=== PATIENT | female | born 1975 | race Caucasian/White ===

== ENCOUNTER → 2016-12-03 | Outpatient (CLI) | payer BC ==
[~2016-12-03] MED LIST: ADIPEX-P37.5 MG; CALCIUM CARB W/1 TA1 PO; FLINTSTONES W/I1 CTB PO; LEVORA-28 30 MC1 TA1 PO; MOTRIN 800800 MG/TAB PO; MULTIPLE VITAMI1 TA7 PO; PRISTIQ 50 MG T50 MG PO; RITE AID BIO2500 MCG PO; ULTRAM 50MG TAB50 MG PO; VITAMIN B12100 MC1 MM; WELLBUTRIN 75MG75 MG PO; ZYRTEC 10MG10 MG PO; [UNRECOGNIZED DRUG - OTHER] PO
== END ==
LOC: BHSO 09:52
DX: F41.1 Generalized anxiety disorder (principal)
CPT/HCPCS: 90791-AI

== ENCOUNTER → 2017-01-25 | Outpatient (CLI) | payer BC | LOC: BHSO 11:38 | DX: F41.1 Generalized anxiety disorder (principal) ==

== ENCOUNTER → 2017-03-01 | Outpatient (CLI) | payer BC | LOC: BHSO 08:58 | DX: F41.1 Generalized anxiety disorder (principal) | CPT/HCPCS: G0463 ==

== ENCOUNTER → 2017-04-19 | Outpatient (CLI) | payer BC | LOC: BHSO 11:15 | DX: F33.41 Major depressive disorder, recurrent, in partial remission (principal) | CPT/HCPCS: G0463 ==

== ENCOUNTER → 2017-06-14 | Outpatient (CLI) | payer BC | LOC: BHSO 11:18 | DX: F31.81 Bipolar II disorder (principal) | CPT/HCPCS: G0463 ==

== ENCOUNTER → 2017-09-06 | Outpatient (CLI) | payer BC | LOC: BHSO 11:37 | DX: F33.42 Major depressive disorder, recurrent, in full remission (principal) | CPT/HCPCS: G0463 ==

== ENCOUNTER → 2018-03-07 | Outpatient (CLI) | payer BC | LOC: BHSO 11:39 | DX: F41.1 Generalized anxiety disorder (principal) | CPT/HCPCS: G0463 ==

== ENCOUNTER → 2018-03-10 | Outpatient (CLI) | payer BC | LOC: MC.RAD 11:20 | DX: Z12.31 Encounter for screening mammogram for malignant neoplasm of breast (principal) ==

== ENCOUNTER → 2018-08-22 | Outpatient (CLI) | payer BC | LOC: BHSO 11:36 | DX: F41.1 Generalized anxiety disorder (principal) | CPT/HCPCS: G0463 ==

== ENCOUNTER → 2019-01-28 | Outpatient (CLI) | payer BC | LOC: COL.RAD 06:57 | DX: R51 Headache (principal) | CPT/HCPCS: Q9967 ==

== ENCOUNTER → 2019-01-30 | Outpatient (CLI) | payer BC | LOC: BHSO 11:20 | DX: F33.42 Major depressive disorder, recurrent, in full remission (principal) | CPT/HCPCS: G0463 ==

== ENCOUNTER → 2019-09-25 | Outpatient (CLI) | payer BC | LOC: BHSO 13:00 | DX: F41.1 Generalized anxiety disorder (principal) | CPT/HCPCS: G0463 ==

== ENCOUNTER → 2019-11-20 | Outpatient (CLI) | payer BC | LOC: BHSO 13:31 | DX: F41.1 Generalized anxiety disorder (principal) | CPT/HCPCS: G0463 ==

== ENCOUNTER → 2019-12-25 | Outpatient (CLI) | payer BC | LOC: BHSO 13:03 | DX: F41.1 Generalized anxiety disorder (principal) | CPT/HCPCS: G0463 ==